=== PATIENT | female | born 1990 | race Caucasian/White ===

== ENCOUNTER 2019-12-05 12:42 | Emergency (ER) | payer BC, SELFPAY ==
--- NOTE | ~2019-12-05 | XR_ITS ---
EXAMINATION: XR chest 1V portable DATE: 12/05/2019 13:30 INDICATION: COVID-19 exposure is ending with shortness of breath, cough and fever. TECHNIQUE: frontal view of the chest was obtained. COMPARISON: None FINDINGS: The lungs are clear with no focal airspace opacities, pulmonary edema, pleural effusion or pneumothor ax. The cardiomediastinal silhouette is normal. Visualized bones and soft tissues are unremarkable. IMPRESSION: 1. No acute cardiopulmonary disease. Reviewed, dictated and finalized at location A.
--- NOTE | 2019-12-05 13:10 | ED.URI ---
HPI - URI/Sore Throat General Chief Complaint: Upper Respiratory Infection Stated Complaint: flu symptoms, awaiting covid results Time Seen by Provider: 12/05/19 12:44 History of Present Illness HPI Narrative: Patient is a 29-year-old female who presents ER with concern that she has been exposed to COVID and is experiencing symptoms. 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 Patient had no direct contact with the individual staff was talking about. She then reports that her daughter developed some cold symptoms and went to her doctor and had a flu swab and a strep swab that were negative. Patient reports that for the last 7 days she has been short of breath but that has increased over the last 24 hours. She also reports 5 days ago she had a temperature of 102 ?F. No runny nose/sore throat, occasional cough that is nonproductive, no chest pain/chest pressure. She purchased an [id number] pulse oximeter and says occasionally the readings go into the mid 80s. Patient reports she received an oral swab for COVID at the [facility] [place] on 12/03/2019. Related Data Home Medications Medication Instructions Recorded Confirmed No Home Medications 12/05/19 12/05/19 Allergies Allergy/AdvReac Type Severity Reaction Status Date / Time benzalkonium chloride Allergy Unknown Unknown Verified 10/19/19 13:34 cephalexin Allergy Unknown Skin Verified 10/19/19 13:34 irritation clarithromycin Allergy Unknown Skin Verified 10/19/19 13:34 irritation Penicillins Allergy Unknown Anaphylaxis Verified 10/19/19 13:34 pramoxine Allergy Unknown Unknown Verified 10/19/19 13:34 Review of Systems Review of Systems: All systems reviewed & are unremarkable except as noted in HPI and below Constitutional: Constitutional: Denies chills, Reports fever(s) and Denies weakness ENT: Denies nasal congestion and Denies sore throat Cardiovascular: Cardiovascular: Denies chest pain Respiratory: Respiratory: Denies chest congestion, Reports cough, Reports dyspnea and Denies wheezing Gastrointestinal: Gastrointestinal: Denies abdominal pain, Denies nausea and Denies vomiting Genitourinary: Genitourinary: Denies nocturia and Denies dysuria Musculoskeletal: Comments: Myalgias for 2 days but none currently. [facility] Past Medical History Medical History (Updated 12/05/19 @ 13:55 by Ramakrishna Weir MD) No pertinent past medical history Surgical History Surgical History (Updated 12/05/19 @ 13:10 by Ramakrishna Weir MD) History of hip surgery History of tonsillectomy Family History Family History (System 10/19/19 @ 13:34 by Mary Lou Foley) Father Diabetes mellitus Hypertension Grandparent Diabetes mellitus Hypertension Malignant neoplasm of prostate Family history of primary malignant neoplasm of liver Sibling Hypertension Mother Family history of malignant neoplasm of thyroid Social History Social History Smoking status: Never smoker Alcohol intake: current Gender identity (if verbalized by the patient): Female Exam Narrative: Exam Narrative: GENERAL: Well-appearing, well-nourished, and in no acute distress. HEAD: Normocephalic, atraumatic. ENT: Mucous membranes moist. No pharyngeal erythema, normal-appearing uvula. CHEST: Clear to auscultation. No respiratory distress. HEART: Tachycardic and regular. No murmur heard. Normal peripheral pulses. ABDOMEN: Soft, nontender, nondistended. EXTREMITIES: Normal range of motion. No edema. NEURO: Alert and oriented x3. PSYCH: Normal mood and affect. Course Course Emergency Course: Informed of results. Discussed continuing home quarantine until [place] sends her the results of her test. Vital Signs Vital signs: Vital Signs Temperatur
--- NOTE | 2019-12-05 13:12 | PC.NURSE ---
Squats with patient masked done at bedside. Pt does get short of breath but lowest spo2 noted was 94%. HR does increase to 113-[address] Weir made aware.
[2019-12-05 13:22] VITALS: BP 151/102; PULSE 100; RESP 18; TEMP 36.9; O2SAT 100
[2019-12-05 13:22] LABS: Basophils Absolute Auto 0.1 K/mm3 (0.0-0.1); Basophils Percent Auto 0.6 % (0.2-1.2); Eosinophils Absolute Auto 0.4 K/mm3 (0-0.3); Eosinophils Percent Auto 4.1 % (0-4.4); Hematocrit 45.4 % (37.0-47.0); Hemoglobin 15.7 g/dL (12.0-15.0); Immature Granulocyte Absolute 0.02 K/mm3 (0.00-0.031); Immature Granulocyte Percent A 0.2 % (0-0.5); Lymphocytes Absolute Auto 2.29 K/mm3 (0.9-3.2); Lymphocytes Percent Auto 25.9 % (18.3-44.2); Mean Corpuscular HGB Conc 34.6 g/dl (32-36); Mean Corpuscular Hemoglobin 30.1 pg (26-34); Mean Corpuscular Volume 87.1 fl (80-100); Mean Platelet Volume 10.8 fl (7.4-10.4); Monocytes Absolute Auto 0.5 K/mm3 (0.1-0.6); Monocytes Percent Auto 5.7 % (2.6-8.5); Neutrophils Absolute Auto 5.6 K/mm3 (1.3-6.7); Neutrophils Percent Auto 63.5 % (45.5-73.1); Platelet Count Result 291 k/mm3 (150-375); Red Blood Count 5.21 M/mm3 (4.2-5.4); Red Cell Distribution Width 12.3 % (11.5-14.5); White Blood Count 8.8 K/mm3 (4.5-10.0)
[2019-12-05 13:34] LABS: Alanine Aminotransferase 15 U/L (4-35); Albumin Level 5.2 g/dL (3.5-5.1); Alkaline Phosphatase 61 U/L (38-126); Aspartate Amino Transferase 23 U/L (14-36); Bilirubin,Total 0.9 mg/dL (0.2-1.3); Blood Urea Nitrogen 11 mg/dL (7-17); Carbon Dioxide 26 mmol/L (22-30); Chloride 103 mmol/L (98-107); Estimated Glomerular Filt Rate > 60; Glucose 88 mg/dL (65-105); Potassium 3.9 mmol/L (3.4-5.0); Sodium 138 mmol/L (137-145)
--- NOTE | 2019-12-05 13:41 | PC.NURSE ---
Report to RIKI Cabral, to continue care.
[2019-12-05] MEDS: SODIUM CHLORIDE 0.9% IV 1,000 ML 999 ML IV CONT (13:43)
[2019-12-05 14:22] VITALS: BP 137/95; PULSE 84; RESP 21; O2SAT 97
== END 2019-12-05 14:23 | disposition home or self-care (01) ==
PROVIDERS: Emergency Provider Emergency Medicine; PCP Family Medicine
DX: B34.9 Viral infection, unspecified (principal)
CPT/HCPCS: 36415; 71045; 80053; 85025; 87804; 96360; 99283; J7030

== ENCOUNTER 2020-12-27 14:11 | Outpatient (CLI) | payer BC, SELFPAY ==
--- NOTE | ~2020-12-27 | US_ITS ---
EXAMINATION: US breast LT limited HISTORY: Palpable lump of the lower inner left breast near the nipple TECHNIQUE: Limited left breast ultrasound is performed. FINDINGS: There is no evidence of focal abnormal cystic or solid mass in the vicinity of the patient' s left breast pain IMPRESSION: No specific sonographic correlate is identified for the reported palpable abnormality of concern. Fur ther evaluation at this time should be based on clinical assessment. Continued follow-up physical exa mination is recommended. BI-RADS Category 1: Negative Reviewed, dictated and finalized at location A. IMPRESSION: No specific sonographic correlate is identified for the reported palpable abnor mality of concern. Further evaluation at this time should be based on clinical assessment. Continued follow-up physical examination is recommended. BI-RADS Category 1: Negative
== END 2020-12-27 14:12 | disposition home or self-care (01) ==
PROVIDERS: PCP Family Medicine; Visit Provider Nurse Practitioner Obstetrics & Gynecology
DX: N64.4 Mastodynia (principal)
CPT/HCPCS: 76642

== ENCOUNTER 2023-09-29 12:25 | Emergency (ER) | payer BC, SELFPAY ==
[2023-09-29 12:33] VITALS: BP 132/101; PULSE 80; RESP 16; TEMP 37.1; O2SAT 100
--- NOTE | 2023-09-29 13:08 | ED.URI ---
HPI - URI/Sore Throat General Chief Complaint: Upper Respiratory Infection Stated Complaint: Sore Throat;Bodyaches Time Seen by Provider: 09/29/23 12:44 Source: patient and RN notes reviewed Mode of arrival: ambulatory Limitations: no limitations History of Present Illness HPI Narrative: Patient presents today with a 10 day history of cough, congestion, sore throat, body aches, and intermittent fever. She has been taking Tylenol, ibuprofen, Sudafed, DayQuil, NyQuil with some relief. She has had a negative COVID-19 test in the duration of her illness. States her nasal congestion has been improving some. Daughter sick with similar symptoms. 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 ENT: Denies rhinorrhea, otalgia.+ congestion, sore throat CARDIOVASCULAR: Denies chest pain, palpitations, or edema. RESPIRATORY: Denies dyspnea.+ cough GASTROINTESTINAL: Denies abdominal pain, nausea, vomiting, or diarrhea. GENITOURINARY: Denies dysuria or hematuria. SKIN: Denies rash, itching, or wounds. MUSCULOSKELETAL: Denies back pain, joint pain, or myalgia. NEUROLOGIC: Denies headache, numbness, tingling, or weakness. PSYCH: Denies depression or anxiety. [facility] Past Medical History Medical History ADD (attention deficit disorder) Dyslipidemia Eczema History of pre-eclampsia (~06/2022) PCOS (polycystic ovarian syndrome) Vitamin D deficiency Surgical History Surgical History History of hip surgery (~2014) Right hip for hip dysplasia and torn labrum History of hysteroscopy (~08/2021) History of left inguinal hernia repair 1995 History of tonsillectomy (~1994) Family History Family History Father Diabetes mellitus Hypertension Grandparent Diabetes mellitus Hypertension Malignant neoplasm of prostate Family history of primary malignant neoplasm of liver Sibling Hypertension Mother Family history of malignant neoplasm of thyroid Social History Social History Smoking status: Never smoker Alcohol intake: current Gender identity (if verbalized by the patient): Female Comments At time of signature, I have reviewed and agree with nursing past medical, surgical, social and family history unless otherwise noted. Please see nursing chart for further information. There is no relevant family history pertinent to the presenting complaint Exam Narrative: GENERAL: Well-appearing, well-nourished, and in no acute distress. HEAD: Normocephalic, atraumatic. EYES: EOMI. No redness or drainage. Conjunctivae normal. ENT: Mucous membranes pink and moist. Nares congested. No rhinorrhea. TMs normal bilaterally. Throat normal. Uvula midline. NECK: Normal AROM. Supple. No lymphadenopathy. CHEST: No respiratory distress. Clear to auscultation. HEART: Regular rate and rhythm. No murmur appreciated. EXTREMITIES: Normal range of motion. No edema. SKIN: Warm, dry, no rash. Capillary refill normal. Normal skin turgor. N
== END 2023-09-29 13:13 | disposition home or self-care (01) ==
PROVIDERS: Emergency Provider Nurse Practitioner; PCP Family Medicine
DX: J40 Bronchitis, not specified as acute or chronic (principal); J01.90 Acute sinusitis, unspecified; E78.5 Hyperlipidemia, unspecified; E28.2 Polycystic ovarian syndrome; E55.9 Vitamin D deficiency, unspecified; Z20.822 Contact with and (suspected) exposure to COVID-19
CPT/HCPCS: 87081; 87426; 87804; 87880; 99213; G0463

== ENCOUNTER 2024-06-05 08:13 | Emergency (ER) | payer BC, SELFPAY ==
--- NOTE | 2024-06-05 08:15 | ED.URI ---
HPI - URI/Sore Throat General Chief Complaint: Upper Respiratory Infection Stated Complaint: sore throat Time Seen by Provider: 06/05/24 08:14 Source: patient Mode of arrival: ambulatory Limitations: no limitations History of Present Illness HPI Narrative: Raji is a 34-year-old female patient presenting to the clinic today with complaints of a sore throat x1 day. She reports she had strep exposure over the weekend. She denies any known fever or chills. Does have some slight nasal congestion as well MD elicited complaint: sore throat and nasal congestion Related Data Home Medications Medication Instructions Recorded Confirmed cholecalciferol (vitamin D3) 50 50 mcg PO DAILY 09/19/21 06/05/24 mcg (2,000 unit) capsule dupilumab 300 mg/2 mL subcutaneous 300 mg subcut WEEKLY 03/20/23 06/05/24 pen injector (D[employer]ixent) Allergies Allergy/AdvReac Type Severity Reaction Status Date / Time benzalkonium chloride Allergy Unknown Redness of Verified 06/05/24 08:30 Skin cephalexin Allergy Unknown Hives Verified 06/05/24 08:30 clarithromycin Allergy Unknown Hives Verified 06/05/24 08:30 Penicillins Allergy Unknown Anaphylaxis Verified 06/05/24 08:30 pramoxine Allergy Unknown Unknown Verified 06/05/24 08:30 Review of Systems Review of Systems: Pertinent positives per HPI. Patient denies any fever, chills, rash, headache, visual changes, dizziness, cough, shortness of breath, chest pain, palpitations, nausea, vomiting, diarrhea, constipation, abdominal pain, or any urinary issues. [facility] Past Medical History Medical History ADD (attention deficit disorder) Dyslipidemia Eczema History of pre-eclampsia (~06/2022) PCOS (polycystic ovarian syndrome) Vitamin D deficiency Surgical History Surgical History History of hip surgery (~2014) Right hip for hip dysplasia and torn labrum History of hysteroscopy (~08/2021) History of left inguinal hernia repair 1995 History of tonsillectomy (~1994) Family History Family History Father Diabetes mellitus Hypertension Grandparent Diabetes mellitus Hypertension Malignant neoplasm of prostate Family history of primary malignant neoplasm of liver Sibling Hypertension Mother Family history of malignant neoplasm of thyroid Social History Social History Smoking status: Never smoker Alcohol intake: current Gender identity (if verbalized by the patient): Female Comments At the time of my signature, I reviewed and agree with the nursing past medical, surgical, social, and family history. There is no relevant family history pertinent to the patient complaint. Exam Narrative: General: Well-developed, well nourished, in no apparent distress Head: Normocephalic, atraumatic Eyes: Pupils equally round and reactive to light bilaterally, EOM intact, sclera and conjunctive clear, no discharge, lids normal Ears: TMs intact and clear, ear canals clear, no drainage, grossly hearing normal. Nose: Nares patent, clear discharge, no inflammation, no sinus tenderness. Mouth: Oral pharynx red with without lesions or masses, good dentition, MMM. Tonsils surgically absent Neck: Supple, trachea midline, enlargement of anterior cervical nodes, no thyroid masses or goiter palpable. Cardio: Regular rate and rhythm, s1 and s2 normal, no murmur appreciated. Resp: Clear to auscultation bilaterally, no rhonchi, rales, wheezing or rubs Course Course Emergency Course: Portions of this record may have been created with voice recognition software. Level of Care: Express Care Visit Vital Signs Vital signs: Vital signs reviewed MDM - URI/Sore Throat MDM Narrative Medical decision making narrative: At the time of visit patient is resting
[2024-06-05 08:25] VITALS: BP 125/86; PULSE 102; RESP 18; TEMP 37.3; O2SAT 99
[2024-06-08 14:24] LABS: EDSTREPNEGPOS1 Positive (Negative)
== END 2024-06-05 08:42 | disposition home or self-care (01) ==
PROVIDERS: Emergency Provider Nurse Practitioner Family; PCP Family Medicine
DX: J02.0 Streptococcal pharyngitis (principal); E78.5 Hyperlipidemia, unspecified; E28.2 Polycystic ovarian syndrome; E55.9 Vitamin D deficiency, unspecified
CPT/HCPCS: 87880; 99213; G0463